=== PATIENT | male | born 1980 | race Caucasian/White ===

== ENCOUNTER 2021-03-02 16:01 | Emergency (ER) | payer MEDICARE, MEDICAID, SELFPAY ==
[2021-03-02 16:05] VITALS: BP 135/57; PULSE 78; RESP 16; TEMP 36.6; O2SAT 100; BMI 29.9
[2021-03-02 16:26] LABS: Basophils # 0.1 10^3/uL (0.0-0.1); Basophils % 0.6 %; Eosinophils # 0.2 10^3/uL (0.0-0.8); Eosinophils % 1.6 %; Hematocrit 43.5 % (42.0-52.0); Hemoglobin 14.7 g/dL (11.7-16.6); Lymphocytes % 21.1 %; Mean Corpuscular HGB Conc 33.8 g/dL (30.0-36.0); Mean Corpuscular Hemoglobin 31.1 pg (28.0-34.0); Mean Corpuscular Volume 92.2 fl (80-94); Mean Platelet Volume 12.3 fL (7.4-10.4); Monocytes # 0.6 10^3/uL (0.2-0.9); Monocytes % 6.5 %; Neutrophils # 6.55 10^3/uL (1.8-7.7); Neutrophils % 69.9 %; Nucleated Red Blood Cells % 0 %; Platelet Count 186 10^3/cmm (130-400); Red Blood Count 4.72 10^6/uL (4.1-5.3); Red Cell Distribution Width 12.6 % (12.1-15.1); White Blood Count 9.4 10^3/uL (4.0-10.0)
--- NOTE | 2021-03-02 16:31 | CTR_ITS ---
PROCEDURE INFORMATION: Exam: CT Head Without Contrast Exam date and time: 03/02/2021 4:31 PM Age: 40 years old Clinical indication: Altered mental status/memory loss; Additional info: PT refusing to speak, this appears to be more of a psych issue but doing head ct^to rule out a stroke. Patient is selective in things he^will say. TECHNIQUE: Imaging protocol: Computed tomography of the head without contrast. Radiation optimization: All CT scans at this facility use at least one of these dose optimization techniques: automated exposure control; mA and/or kV adjustment per patient size (includes targeted exams where dose is matched to clinical indication); or iterative reconstruction. COMPARISON: No relevant prior studies available. RADIATION DOSE METRICS: Total DLP (mGy-cm): 1739.51 FINDINGS: Brain: Normal. No hemorrhage. Unremarkable white matter. No mass effect. Cerebral ventricles: No ventriculomegaly. Paranasal sinuses: Visualized sinuses are unremarkable. No fluid levels. Mastoid air cells: Visualized mastoid air cells are well aerated. Bones/joints: Unremarkable. No acute fracture. Soft tissues: Unremarkable. CT/CT head wo con* [id number] IMPRESSION: No acute intracranial abnormality. Radiation Dose CTDIVOL = (mGy): DLP = 1739.51 (mGy-cm)
--- NOTE | 2021-03-02 16:33 | W.ED.PSYCH ---
Documented by User: TED Ayala 03/03/21 20:51 HPI - Psych General: Chief Complaint: Psychiatric Symptoms Stated Complaint: PSYCH EVAL Time Seen by Provider: 03/02/21 16:18 History of Present Illness: HPI Narrative: Patient is a 40-year-old male who comes to the ED via EMS for psych eval. Patient was at the [facility] just prior to arrival and staff said patient just stopped verbally responding to them and he was just making a humming sound. Here in the ED patient is a poor historian and will not answer questions. He just stares blankly and mumbles things softly when I ask him questions. He understands my questions and does respond verbally to some questions correctly. When I asked questions about patient's history or why he is here he would just mumble quietly. Patient shook his head no when I asked if he had any SI, HI, auditory/visual hallucinations, depression or anxiety. Associated symptoms: Deny auditory hallucinations, visual hallucinations, depression, homicidal ideation or suicidal ideation Review of Systems Const: Denies: fever(s), chills or fatigue Eyes: Denies: change in vision or eye discomfort ENMT: Denies: throat pain, odynophagia, nasal discharge or nasal congestion Card: Denies: chest pain, palpitations, edema, swelling of feet/ankles, dyspnea on exertion or orthopnea Resp: Denies: dyspnea, productive cough or non-productive cough GI: Denies: abdominal pain, nausea, vomiting, diarrhea, constipation or hematochezia : Denies: flank pain, difficulty urinating, dysuria or hematuria Musc: Denies: neck pain, back pain or extremity swelling Skin/Breast: Denies: rash or new lesions Neuro: Denies: headache(s), numbness in extremities or weakness in extremities Psych: Reports: other (Mumbling and refusing to respond verbally.); Denies: anxiety, depression, visual hallucinations, auditory hallucinations, suicidal ideation or homicidal ideation Physical Exam Const: COMMON NORMALS: patient oriented x3 and alert HENMT: COMMON NORMALS: normocephalic HEAD & SCALP: normocephalic MOUTH: Normal oral and palatal mucosa present THROAT: posterior oropharynx normal and uvula midline Neck/C-Spine: COMMON NORMALS: supple GENERAL: Yes normal visual inspection Resp: COMMON NORMALS: normal respiratory effort, No retractions, No use of accessory muscles and clear to auscultation bilaterally AUSCULTATION: clear to auscultation bilaterally Cardio: COMMON NORMALS: regular rate, regular rhythm, S1 normal heart sound present, S2 normal heart sound present, No gallops present (Cardio), No clicks present (Cardio), No murmurs present (Cardio) and Peripheral pulses 2+ throughout RATE: regular rate RHYTHM: regular rhythm HEART SOUNDS: S1 normal heart sound present and S2 normal heart sound present PERIPHERAL PULSES: Peripheral pulses 2+ throughout GI: COMMON NORMALS: Normal to inspection, nondistended, normoactive bowel sounds present, Soft to palpation, non-tender and no masses PALPATION: Yes Soft to palpation : COMMON NORMALS: Yes no CVA tenderness BLADDER/KIDNEY EXAM: Yes no CVA tenderness Back/Pelvis: COMMON NORMALS: no CVA tenderness Extremity: COMMON NORMALS: normal to inspection Neuro: COMMON NORMALS: patient oriented x3, CN's II-XII intact bilaterally, moves all extremities, no focal motor deficits and no sensory deficits noted SENSORIUM/ORIENTATION: Yes alert COORDINATION/BALANCE: [id number] test normal SPEECH: Other neuro speech findings (pt is mumbling some words and saying others clearly) SENSORY EXAM: Yes extremities (Sensation intact to soft touch bilaterally.) MOTOR EXAM: 5/5 motor strength present throughout and Pronator motor function not present COORDINATION: [id number] test normal Course Vital Signs: Vital signs: Vital Signs Temperature 97.8 F 03/02/21 16:05 Pulse Rate 78 03/02/21 16:05 Respiratory Rate 16 03/02/21 16:05 Blood Pressure 135/57 03/02/21 16:05 Pulse Oximetry 100 03/02/21 16:05 MDM - Psych Lab Data: Attestation: I reviewed the patient's lab results. Labs: Lab Results 03/02/21 03/02/21 03/02/21 16:15 16:15 17:03 WBC 9.4 10^3/uL 10^3/ uL (4.0-10.0) RBC 4.72 10^6/uL 10^6 /uL (4.1-5.3) Hgb 14.7 g/dL g/dL (11.7-16.6) Hct 43.5 % % (42.0-52.0) MCV 92.2 fl fl (80-94) MCH 31.1 pg pg (28.0-34.0) MCHC 33.8 g/dL g/dL (30.0-36.0) RDW 12.6 % % (12.1-15.1) Plt Count 186 10^3/cmm 10^3 /cmm (130-400) MPV 12.3 fL H fL (7.4-10.4) Neut % (Auto) 69.9 % % Lymph % (Auto) 21.1 % % [place] % (Auto) 6.5 % % Eos % (Auto) 1.6 % % Baso % (Auto) 0.6 % % Neut # (Auto) 6.55 10^3/uL 10^3 /uL (1.8-7.7) Lymph # (Auto) 2.0 10^3/uL 10^3/ uL (0.8-4.8) [place] # (Auto) 0.6 10^3/uL 10^3/ uL (0.2-0.9) Eos # (Auto) 0.2 10^3/uL 10^3/ uL (0.0-0.8) Baso # (Auto) 0.1 10^3/uL 10^3/ uL (0.0-0.1) Nucleated RBC % (a uto) 0 % % Nucleated RBCs # 0.0 /100WBC /100W BC Sodium 137 mmol/L mmol/L (136-145) Potassium 3.8 mmol/L mmol/L (3.5-5.1) Chloride 102 mmol/L mmol/L (98-107) Carbon Dioxide 26 mmol/L mmol/L (22-29) Anion Gap 12.8 (5-19) BUN 13 mg/dL mg/dL (6-20) Creatinine 0.8 mg/dL mg/dL (0.7-1.2) GFR Calculation 106.0 mL/min mL/m in (90-130) Glucose 98 mg/dL mg/dL (65-115) Calculated Osmolal ity 284 mOsm/kg L mOs m/kg (285-295) Calcium 9.0 mg/dL mg/dL (8.5-10.5) Total Bilirubin 0.3 mg/dL mg/dL (0.15-1.2) AST 15 U/L U/L (0-40) ALT 17 U/L U/L (0-41) Alkaline Phosphata se 63 IU/L IU/L (40-130) Total Protein 7.2 g/dL g/dL (6.6-8.7) Albumin 4.2 g/dL g/dL (3.5-5.2) Globulin 3.0 g/dL g/dL (1.3-4.6) Urine Color Straw (Yellow) Urine Appearance Clear (CLEAR) Urine pH 6 (5-7) Ur Specific Gravit y 1.005 (1.005-1.030) Urine Protein Neg (Negative) Urine Glucose (UA) Norm (Normal) Urine Ketones Negative (Negative) Urine Blood Neg (Negative) Urine Nitrate Negative (Negative) Urine Bilirubin Neg (Negative) Urine Urobilinogen Norm mg/dL mg/dL (Negative) Ur Leukocyte Madeline ase Negative (Negative) Salicylates 0.4 mg/dL L mg/dL (3-10) Urine Opiates Scre en Acetaminophen < 5.0 ug/mL L ug/ mL (10-30) Ur Barbiturates Sc reen Ur Phencyclidine S crn Ur Amphetamines Sc reen U Benzodiazepines Scrn Urine Cocaine Scre en U Marijuana (THC) Screen Ethyl Alcohol < 10 mg/dL mg/dL (0-10) 03/02/21 17:03 WBC RBC Hgb Hct MCV MCH MCHC RDW Plt Count MPV Neut % (Auto) Lymph % (Auto) [place] % (Auto) Eos % (Auto) Baso % (Auto) Neut # (Auto) Lymph # (Auto) [place] # (Auto) Eos # (Auto) Baso # (Auto) Nucleated RBC % (a uto) Nucleated RBCs # Sodium Potassium Chloride Carbon Dioxide Anion Gap BUN Creatinine GFR Calculation Glucose Calculated Osmolal ity Calcium Total Bilirubin AST ALT Alkaline Phosphata se Total Protein Albumin Globulin Urine Color Urine Appearance Urine pH Ur Specific Gravit y Urine Protein Urine Glucose (UA) Urine Ketones Urine Blood Urine Nitrate Urine Bilirubin Urine Urobilinogen Ur Leukocyte Madeline ase Salicylates Urine Opiates Scre en Negative ng/mL ng /mL (Negative) Acetaminophen Ur Barbiturates Sc reen Negative ng/mL ng /mL (Negative) Ur Phencyclidine S crn Negative ng/mL ng /mL (Negative) Ur Amphetamines Sc reen Negative ng/mL ng /mL (Negative) U Benzodiazepines Scrn Negative ng/mL ng /mL (Negative) Urine Cocaine Scre en Negative ng/mL ng /mL (Negative) U Marijuana (THC) Screen Positive ng/mL H ng/mL (Negative) Ethyl Alcohol Discharge Plan Discharge Patient Disposition: Home Clinical Impression: Adverse effect of drug Qualifiers: Encounter type: initial encounter Qualified Code(s): T50.905A - Adverse effect of unspecified drugs, medicaments and biological substances, initial encounter Condition: Stable Prescriptions: No Action Unable to Assess RF: 0 Discharge Orders: Discharge ED (Routine); Ordered 03/02/21 Ordered By: Griffin Cardenas Discharge Diet: Usual diet Discharge Activity: Increase activity as tolerated Patient Instructions: Opioid Safety Activity Restrictions/Additional Instructions: Most likely the medication you have been prescribed for your depression has caused an adverse effect. It is recommended you follow-up with your therapist or your primary care physician that is managing your medications to adjust the dosage. At this time continue with routine care. Return to the ER for worsening symptoms or new concerns. Sign Out Sign Out Data: Patient Sign Out occurred on 03/02/21 at 17:19. Patient's care was discussed, and care was transferred from to Griffin Cardenas. Coding Level of Care Code ED Explosives Operator for Chg Fwd Exam Comprehensive Documented by User: DONNA Quiroz 03/02/21 18:11 HPI - Psych General: Chief Complaint: Psychiatric Symptoms Stated Complaint: PSYCH EVAL Time Seen by Provider: 03/02/21 16:18 Physical Exam Psych: COMMON NORMALS: cooperative ATTITUDE: Yes calm and Yes evasive SPEECH: Yes incoherent MOOD & AFFECT: Yes euthymic mood Course ED course: 1804, discussed with Dr. Agrawal patient's condition and abnormalities of exams. Patient consistently denies suicidal or homicidal thoughts. Patient denies any hallucinations or other signs of psychosis. It is believed patient's probably had a adverse effect to one of his antidepressants. We do not have the list of this medication at this time. Patient would like to go home. Dr. Agrawal is agreeable to this plan of him going home and following up with his psychiatrist or provider that he manages his prescriptions for dosage adjustment. Laboratory values and head CT were all negative. Vital Signs: Vital signs: Vital Signs Temperature 97.8 F 03/02/21 16:05 Pulse Rate 78 03/02/21 16:05 Respiratory Rate 16 03/02/21 16:05 Blood Pressure 135/57 03/02/21 16:05 Pulse Oximetry 100 03/02/21 16:05 MDM - Psych MDM Narrative: Medical decision making narrative: Patient was brought in by EMS for concerns of change in verbalization while visiting the [facility]. Patient denied any homicidal or suicidal thought. No focal neural deficits were noted. Patient would at times verbalize yes or no but otherwise would just hmmm or mumble responses. Patient denied any hallucinations auditory or visual. Patient was cooperative throughout exam. Differential diagnosis includes but not limited to adverse drug effect, delirium, psychosis. No signs of psychosis was noted at this time. CT of the head indicated no stroke or other physical abnormality. Laboratory values were unremarkable. Drug screen only noted positive for marijuana. I reviewed this with Dr. Agrawal he believes it may be an tach that was brought on by some of his antidepressant medication. Patient was recommended to follow-up with primary care for further instruction. Return to the ER for new concerns. Lab Data: Labs: Lab Results 03/02/21 03/02/21 03/02/21 16:15 16:15 17:03 WBC 9.4 10^3/uL 10^3/ uL (4.0-10.0) RBC 4.72 10^6/uL 10^6 /uL (4.1-5.3) Hgb 14.7 g/dL g/dL (11.7-16.6) Hct 43.5 % % (42.0-52.0) MCV 92.2 fl fl (80-94) MCH 31.1 pg pg (28.0-34.0) MCHC 33.8 g/dL g/dL (30.0-36.0) RDW 12.6 % % (12.1-15.1) Plt Count 186 10^3/cmm 10^3 /cmm (130-400) MPV 12.3 fL H fL (7.4-10.4) Neut % (Auto) 69.9 % % Lymph % (Auto) 21.1 % % [place] % (Auto) 6.5 % % Eos % (Auto) 1.6 % % Baso % (Auto) 0.6 % % Neut # (Auto) 6.55 10^3/uL 10^3 /uL (1.8-7.7) Lymph # (Auto) 2.0 10^3/uL 10^3/ uL (0.8-4.8) [place] # (Auto) 0.6 10^3/uL 10^3/ uL (0.2-0.9) Eos # (Auto) 0.2 10^3/uL 10^3/ uL (0.0-0.8) Baso # (Auto) 0.1 10^3/uL 10^3/ uL (0.0-0.1) Nucleated RBC % (a uto) 0 % % Nucleated RBCs # 0.0 /100WBC /100W BC Sodium 137 mmol/L mmol/L (136-145) Potassium 3.8 mmol/L mmol/L (3.5-5.1) Chloride 102 mmol/L mmol/L (98-107) Carbon Dioxide 26 mmol/L mmol/L (22-29) Anion Gap 12.8 (5-19) BUN 13 mg/dL mg/dL (6-20) Creatinine 0.8 mg/dL mg/dL (0.7-1.2) GFR Calculation 106.0 mL/min mL/m in (90-130) Glucose 98 mg/dL mg/dL (65-115) Calculated Osmolal ity 284 mOsm/kg L mOs m/kg (285-295) Calcium 9.0 mg/dL mg/dL (8.5-10.5) Total Bilirubin 0.3 mg/dL mg/dL (0.15-1.2) AST 15 U/L U/L (0-40) ALT 17 U/L U/L (0-41) Alkaline Phosphata se 63 IU/L IU/L (40-130) Total Protein 7.2 g/dL g/dL (6.6-8.7) Albumin 4.2 g/dL g/dL (3.5-5.2) Globulin 3.0 g/dL g/dL (1.3-4.6) Urine Color Straw (Yellow) Urine Appearance Clear (CLEAR) Urine pH 6 (5-7) Ur Specific Gravit y 1.005 (1.005-1.030) Urine Protein Neg (Negative) Urine Glucose (UA) Norm (Normal) Urine Ketones Negative (Negative) Urine Blood Neg (Negative) Urine Nitrate Negative (Negative) Urine Bilirubin Neg (Negative) Urine Urobilinogen Norm mg/dL mg/dL (Negative) Ur Leukocyte Madeline ase Negative (Negative) Salicylates 0.4 mg/dL L mg/dL (3-10) Urine Opiates Scre en Acetaminophen < 5.0 ug/mL L ug/ mL (10-30) Ur Barbiturates Sc reen Ur Phencyclidine S crn Ur Amphetamines Sc reen U Benzodiazepines Scrn Urine Cocaine Scre en U Marijuana (THC) Screen Ethyl Alcohol < 10 mg/dL mg/dL (0-10) 03/02/21 17:03 WBC RBC Hgb Hct MCV MCH MCHC RDW Plt Count MPV Neut % (Auto) Lymph % (Auto) [place] % (Auto) Eos % (Auto) Baso % (Auto) Neut # (Auto) Lymph # (Auto) [place] # (Auto) Eos # (Auto) Baso # (Auto) Nucleated RBC % (a uto) Nucleated RBCs # Sodium Potassium Chloride Carbon Dioxide Anion Gap BUN Creatinine GFR Calculation Glucose Calculated Osmolal ity Calcium Total Bilirubin AST ALT Alkaline Phosphata se Total Protein Albumin Globulin Urine Color Urine Appearance Urine pH Ur Specific Gravit y Urine Protein Urine Glucose (UA) Urine Ketones Urine Blood Urine Nitrate Urine Bilirubin Urine Urobilinogen Ur Leukocyte Madeline ase Salicylates Urine Opiates Scre en Negative ng/mL ng /mL (Negative) Acetaminophen Ur Barbiturates Sc reen Negative ng/mL ng /mL (Negative) Ur Phencyclidine S crn Negative ng/mL ng /mL (Negative) Ur Amphetamines Sc reen Negative ng/mL ng /mL (Negative) U Benzodiazepines Scrn Negative ng/mL ng /mL (Negative) Urine Cocaine Scre en Negative ng/mL ng /mL (Negative) U Marijuana (THC) Screen Positive ng/mL H ng/mL (Negative) Ethyl Alcohol Discharge Plan Discharge Patient Disposition: Home Clinical Impression: Adverse effect of drug Qualifiers: Encounter type: initial encounter Qualified Code(s): T50.905A - Adverse effect of unspecified drugs, medicaments and biological substances, initial encounter Condition: Stable Prescriptions: No Action Unable to Assess RF: 0 Discharge Orders: Discharge ED (Routine); Ordered 03/02/21 Ordered By: Griffin Cardenas Discharge Diet: Usual diet Discharge Activity: Increase activity as tolerated Patient Instructions: Opioid Safety Activity Restrictions/Additional Instructions: Most likely the medication you have been prescribed for your depression has caused an adverse effect. It is recommended you follow-up with your therapist or your primary care physician that is managing your medications to adjust the dosage. At this time continue with routine care. Return to the ER for worsening symptoms or new concerns. Sign Out Sign Out Data: Patient Sign Out occurred on 03/02/21 at 17:19. Patient's care was discussed, and care was transferred from to Griffin Cardenas. Coding Level of Care Code ED Explosives Operator for Farzad Soria Exam Comprehensive
[2021-03-02 16:52] LABS: Alanine Aminotransferase 17 U/L (0-41); Albumin Level 4.2 g/dL (3.5-5.2); Alkaline Phosphatase 63 IU/L (40-130); Anion Gap 12.8 (5-19); Aspartate Amino Transferase 15 U/L (0-40); Blood Urea Nitrogen 13 mg/dL (6-20); Carbon Dioxide 26 mmol/L (22-29); Chloride 102 mmol/L (98-107); Glucose 98 mg/dL (65-115); Osmolality Calculated 284 mOsm/kg (285-295); Potassium 3.8 mmol/L (3.5-5.1); Salicylate 0.4 mg/dL (3-10); Sodium 137 mmol/L (136-145); Total Bilirubin 0.3 mg/dL (0.15-1.2); Total Protein 7.2 g/dL (6.6-8.7)
[2021-03-02 16:53] LABS: Acetaminophen < 5.0 ug/mL (10-30); Alcohol Level < 10 mg/dL (0-10)
[2021-03-02 17:15] LABS: Add Urine Microscopic? NO; Charge for UA Resulting for Rev
[2021-03-02 17:19] LABS: Bilirubin Urine Neg (Negative); Blood Urine Neg (Negative); Glucose Urine UA Norm (Normal); Ketones Urine Negative (Negative); Leukocyte Esterase Urine Negative (Negative); Nitrate Urine Negative (Negative); Protein Urine Neg (Negative); Specific Gravity, Urine 1.005 (1.005-1.030); Urine Appearance Clear (CLEAR); Urine Color Straw (Yellow); Urobilinogen Urine Norm (Negative); pH Urine 6 (5-7)
--- NOTE | 2021-03-02 17:20 | PC.PHAR ---
PT WILL ONLY HUM WHEN ASKED QUESTIONS-EXT MED HISTORY SHOWS TRAZODONE 50MG 1 TAB HS, TEMAZEPAM 15MG 1 TAB DAILY FILLED ON 03/01/21 30D/S-ALBENDAZOLE 200MG 2 TAB DAILY ONCE FOR 2 DAYS THEN REPEAT IN 2 WEEKS FILLED ON 02/11/21 14D/S-PHENTERMINE 37.5MG DAILY FILLED 02/05/21 30D/S-VITAMIN D3 5,000 UNITS DAILY FILLED 02/03/21 30D/S-LATUDA 40MG DAILY FILLED 02/03/21 30D/S-HYDROXYZINE PAMOATE 50MG 1 QID DIRECTED FILLED ON 01/16/21 30D/S-PRAZOSIN 1MG 1 CAP HS FILLED 01/14/21 30D/S-CLONAZEPAM 1MG 1 TAB BID DIRECTED FILLED ON 01/14/21 30D/S-BENZTROPINE 1MG 1 TAB BID DIRECTED FILLED ON 01/14/21 30D/S
[2021-03-02 17:29] LABS: Amphetamines Screen Urine Negative (Negative); Barbiturates Screen Urine Negative (Negative); Benzodiazepines Screen Urine Negative (Negative); Cocaine Screen Urine Negative (Negative); Opiate Screen Urine Negative (Negative); PCP Screen Urine Negative (Negative); THC Screen Urine Positive (Negative)
== END 2021-03-02 18:34 | disposition home or self-care (01) ==
PROVIDERS: Physician Assistant; Emergency Provider Nurse Practitioner Family
DX: T88.7XXA Unspecified adverse effect of drug or medicament, initial encounter (principal); T50.905A Adverse effect of unspecified drugs, medicaments and biological substances, initial encounter
CPT/HCPCS: 70450; 80053; 80306; 80307; 81003; 85025; 99283

== ENCOUNTER 2021-04-04 16:56 | Inpatient (IN) | payer MEDICARE, MEDICAID, SELFPAY ==
--- NOTE | 2021-04-04 16:57 | ED_ITS ---
HPI - Psych General: Chief Complaint: General Medical Stated Complaint: AUDITORY HALLUCINATIONS Time Seen by Provider: 04/04/21 16:57 History of Present Illness: HPI Narrative: Mr. Maxwell is a 40-year-old gentleman with psychiatric history who presents emergency department due to psychiatric concern. He endorses 1 day history of increased auditory hallucinations. He denies command hallucinations however the hallucinations do bother him. His exact history is somewhat unclear, his thought processes slowed and at times he appears to be responding to internal stimuli. He reports he has been on Risperdal. He reports missing a few doses but is unsure of how many. He otherwise denies injury or medical complaint. No other known specific exacerbating relieving factors. Review of Systems General: Reports: 10 or more systems reviewed and unremarkable except in HPI and below Physical Exam Narrative: EXAM NARRATIVE: GENERAL/CONSTITUTIONAL - well-appearing. No acute distress. Eyes -no scleral icterus, no conjunctival injection ENMT - Atraumatic external nose and ears. Moist mucous membranes NECK - supple. trachea midline CARDIOVASCULAR - regular rate and rhythm. RESPIRATORY -clear to auscultation bilaterally. ABDOMEN/GI - Nontender/Nondistended. MSK - Extremities without obvious deformity or tenderness to palpation SKIN - Warm, Dry NEURO - alert but unclear orientation. Moves all extremities equally. PSYCH -impaired cognition and memory. Course ED course: - Patient was seen and evaluated by me at bedside - Patient placed on cardiac monitors, IV access obtained - Initial evaluation notable for no acute distress, no traumatic injuries - Labs notable for no acute abnormality to explain the patient's symptoms. - After initial assessment and the patient being agreeable to be hospitalized he began to try and leave. I assessed the patient. The patient lacks capacity to make decisions regarding disposition. He cannot articulate any risks or benefits nor reasoning for desire to leave. He cannot express where he plans to go when he leaves or any follow-up plan. I attempted to explain the situation with the patient and he did not appear to have any understanding. 96-hour hold paperwork filled out due to patient's level of psychosis - Patient admitted to psychiatric unit after discussion with Dr. Cavazos. - Admitted without acute deterioration or acute event in the emergency department Vital Signs: Vital signs: Vital Signs Temperature 97.7 F 04/07/21 14:00 Pulse Rate 101 H 04/07/21 20:46 Respiratory Rate 17 04/07/21 20:46 Blood Pressure 156/114 04/07/21 20:46 Pulse Oximetry 96 04/07/21 20:46 MDM - Psych Medical Records: Attestation: I reviewed the patient's medical records. Lab Data: Attestation: I reviewed the patient's lab results. Labs: Lab Results 04/04/21 04/04/21 04/04/21 17:33 17:33 19:28 WBC 12.5 10^3/uL H 10 ^3/uL (4.0-10.0) RBC 4.93 10^6/uL 10^6 /uL (4.1-5.3) Hgb 15.2 g/dL g/dL (11.7-16.6) Hct 45.1 % % (42.0-52.0) MCV 91.5 fl fl (80-94) MCH 30.8 pg pg (28.0-34.0) MCHC 33.7 g/dL g/dL (30.0-36.0) RDW 12.7 % % (12.1-15.1) Plt Count 212 10^3/cmm 10^3 /cmm (130-400) MPV 11.4 fL H fL (7.4-10.4) Neut % (Auto) 74.4 % % Lymph % (Auto) 17.3 % % [place] % (Auto) 5.3 % % Eos % (Auto) 1.5 % % Baso % (Auto) 0.9 % % Neut # (Auto) 9.28 10^3/uL H 10 ^3/uL (1.8-7.7) Lymph # (Auto) 2.2 10^3/uL 10^3/ uL (0.8-4.8) Daniels # (Auto) 0.7 10^3/uL 10^3/ uL (0.2-0.9) Eos # (Auto) 0.2 10^3/uL 10^3/ uL (0.0-0.8) Baso # (Auto) 0.1 10^3/uL 10^3/ uL (0.0-0.1) Nucleated RBC % (a uto) 0 % % Nucleated RBCs # 0.0 /100WBC /100W BC Sodium 140 mmol/L mmol/L (136-145) Potassium 4.2 mmol/L mmol/L (3.5-5.1) Chloride 103 mmol/L mmol/L (98-107) Carbon Dioxide 28 mmol/L mmol/L (22-29) Anion Gap 13.2 (5-19) BUN 11 mg/dL mg/dL (6-20) Creatinine 0.8 mg/dL mg/dL (0.7-1.2) GFR Calculation 106.0 mL/min mL/m in (90-130) Glucose 92 mg/dL mg/dL (65-115) Calculated Osmolal ity 289 mOsm/kg mOsm/ kg (285-295) Calcium 9.0 mg/dL mg/dL (8.5-10.5) Total Bilirubin 0.4 mg/dL mg/dL (0.15-1.2) AST 8 U/L U/L (0-40) ALT 11 U/L U/L (0-41) Alkaline Phosphata se 79 IU/L IU/L (40-130) Total Protein 7.0 g/dL g/dL (6.6-8.7) Albumin 4.2 g/dL g/dL (3.5-5.2) Globulin 2.8 g/dL g/dL (1.3-4.6) TSH 0.93 uIU/mL uIU/m L (0.27-4.20) Salicylates < 0.3 mg/dL L mg/ dL (3-10) Urine Opiates Scre en Negative ng/mL ng /mL (Negative) Acetaminophen < 5.0 ug/mL L ug/ mL (10-30) Ur Barbiturates Sc reen Negative ng/mL ng /mL (Negative) Ur Phencyclidine S crn Negative ng/mL ng /mL (Negative) Ur Amphetamines Sc reen Positive ng/mL H ng/mL (Negative) U Benzodiazepines Scrn Negative ng/mL ng /mL (Negative) Urine Cocaine Scre en Negative ng/mL ng /mL (Negative) U Marijuana (THC) Screen Positive ng/mL H ng/mL (Negative) Ethyl Alcohol < 10 mg/dL mg/dL (0-10) EKG Data^: EKG 1: Attestation: I personally reviewed and interpreted this EKG as follows: EKG interpretation date: 04/04/21 EKG interpretation time: 17:48 Interpretation: Twelve-lead EKG shows a regular rhythm at a rate of 89. WA interval 148, QRS duration 98, QTc 409. Left axis deviation. Interpretation: Sinus rhythm Discharge Plan Discharge Patient Disposition: Admitted As Inpatient Admit Provider: Darrell Cavazos Clinical Impression: Acute psychosis Condition: Stable Coding Level of Care Code ED Spray Gun Repairer Helper for Farzad Soria
[2021-04-04 17:01] VITALS: BP 143/95; PULSE 90; RESP 18; TEMP 36.5; O2SAT 97; BMI 35.1
--- NOTE | 2021-04-04 17:08 | ECG_ITS ---
[facility] Test Date: 2021-04-04 Pat Name: Reuben Maxwell Department: Room: Gender: Male Cloud Architect: : [id number] Requested By: Zackery Gaitan Order Number: [id number] [place] MD: MAIKEL NICE Measurements Intervals [place] Rate: 89 P: 59 NH: 148 QRS: -13 QRSD: 98 T: 51 QT: 336 QTc: 409 Interpretive Statements SINUS RHYTHM VOLTAGE CRITERIA FOR LVH [MEETS CRITERIA IN ONE OF: R(aVL), S(V1), R(V5), R(V5/V6)+S(V1)] No previous ECG available for comparison Electronically Signed On 04-05-2021 0:10:19 CDT by MAIKEL NICE [email or web address]/[id number] f
[2021-04-04 17:49] LABS: Basophils # 0.1 10^3/uL (0.0-0.1); Basophils % 0.9 %; Eosinophils # 0.2 10^3/uL (0.0-0.8); Eosinophils % 1.5 %; Hematocrit 45.1 % (42.0-52.0); Hemoglobin 15.2 g/dL (11.7-16.6); Lymphocytes # 2.2 10^3/uL (0.8-4.8); Lymphocytes % 17.3 %; Mean Corpuscular HGB Conc 33.7 g/dL (30.0-36.0); Mean Corpuscular Hemoglobin 30.8 pg (28.0-34.0); Mean Corpuscular Volume 91.5 fl (80-94); Mean Platelet Volume 11.4 fL (7.4-10.4); Monocytes # 0.7 10^3/uL (0.2-0.9); Monocytes % 5.3 %; Neutrophils # 9.28 10^3/uL (1.8-7.7); Neutrophils % 74.4 %; Nucleated Red Blood Cells % 0 %; Platelet Count 212 10^3/cmm (130-400); Red Blood Count 4.93 10^6/uL (4.1-5.3); Red Cell Distribution Width 12.7 % (12.1-15.1); White Blood Count 12.5 10^3/uL (4.0-10.0)
[2021-04-04 18:24] LABS: Alanine Aminotransferase 11 U/L (0-41); Albumin Level 4.2 g/dL (3.5-5.2); Alkaline Phosphatase 79 IU/L (40-130); Anion Gap 13.2 (5-19); Aspartate Amino Transferase 8 U/L (0-40); Blood Urea Nitrogen 11 mg/dL (6-20); Carbon Dioxide 28 mmol/L (22-29); Chloride 103 mmol/L (98-107); Globulin 2.8 g/dL (1.3-4.6); Glucose 92 mg/dL (65-115); Osmolality Calculated 289 mOsm/kg (285-295); Potassium 4.2 mmol/L (3.5-5.1); Sodium 140 mmol/L (136-145); Thyroid Stimulating Hormone 0.93 uIU/mL (0.27-4.20); Total Bilirubin 0.4 mg/dL (0.15-1.2)
[2021-04-04 18:26] LABS: Acetaminophen < 5.0 ug/mL (10-30); Alcohol Level < 10 mg/dL (0-10); Salicylate < 0.3 mg/dL (3-10)
[2021-04-04 19:58] LABS: Amphetamines Screen Urine Positive (Negative); Barbiturates Screen Urine Negative (Negative); Benzodiazepines Screen Urine Negative (Negative); Cocaine Screen Urine Negative (Negative); Opiate Screen Urine Negative (Negative); PCP Screen Urine Negative (Negative); THC Screen Urine Positive (Negative)
[2021-04-04 21:37] VITALS: BP 141/94; PULSE 87; RESP 21; TEMP 36.7; O2SAT 98
[2021-04-05] MEDS: hyDROXYzine 25 mg Capsule 50 MG PO ×3 (04:13→15:57)
[2021-04-05 06:00] VITALS: BP 140/102; PULSE 97; RESP 22; TEMP 36.7; O2SAT 97
--- NOTE | 2021-04-05 06:01 | PC.NURSE ---
Patient has been up in ruggiero, pacing, tense, anxious. Received PRN Vistaril at 0413. Patient does appear less tense at this time but continues pacing. Does report that Vistaril was helpful.
[2021-04-05] MEDS: CLONazepam 1 mg Tablet PO ×2 (09:17→23:13)
[2021-04-05] MEDS: divalproex DR 500 mg Tablet PO ×2 (09:17→23:12)
[2021-04-05] MEDS: loratadine 10 mg Tablet PO (09:17)
[2021-04-05] MEDS: risperiDONE 1 mg Tablet PO ×2 (09:17→23:12)
--- NOTE | 2021-04-05 09:18 | PC.NURSE ---
PATIENT UP TO ATTEND MORNING GROUP, REMAINS VERY TENSE, DIFFICULT TO TRACK ANC CONCENTRATE ON CONVERSATION. REPORS HAVING SEVERE AUDITORY HALLUCINATIONS THIS MORNING. REMINDED HIM HE COULD HAVE VISTARIL IF NEEDED.
--- NOTE | 2021-04-05 10:21 | PC.NURSE ---
PRN VISTARIL 50 MG GIVEN PO PER PT C/O STATED ANXIETY
--- NOTE | 2021-04-05 10:52 | NPU.GN ---
[facility] Unit Group Topic: Triggers and Coping Skills General Mood of Group: Reuben did attend group and did participate in group today.
[2021-04-05] MEDS: nicotine 2 mg Gum BUCCAL ×2 (12:25→17:06)
--- NOTE | 2021-04-05 13:03 | P.NPUHP_ITS ---
Providers/Chief Complaint Admitting Physician: Darrell Cavazos MD Chief Complaint: AUDITORY HALLUCINATIONS HPI NPU History of Present Illness Reuben Maxwell is a 40 year old male who presented to the emergency department with report: Chief Complaint: General Medical Stated Complaint: AUDITORY HALLUCINATIONS Time Seen by Provider: 04/04/21 16:57 History of Present Illness: HPI Narrative: Mr. Maxwell is a 40-year-old gentleman with psychiatric history who presents emergency department due to psychiatric concern. He endorses 1 day history of increased auditory hallucinations. He denies command hallucinations however the hallucinations do bother him. His exact history is somewhat unclear, his thought processes slowed and at times he appears to be responding to internal stimuli. He reports fall w ith an MS and has been on Risperdal. He reports missing a few doses but is unsure of how many. He otherwise denies injury or medical complaint. No other known specific exacerbating relieving factors. He was admitted to the neuropsychiatric unit for definitive treatment of those issues. He presents today as a fairly poor historian with lack of clarity in many if not most of his answers. He reports that he is at the hospital to get on his medications because he stopped them but then reported that he has all his medications with him and he only been off of them for 2 or 3 days and he could not articulate why he would need to come to the hospital to get back on medications he has. When asked what medications he is on he said Klonopin and stuff. He reports that he has been hospitalized sometimes but could not estimate a number and could not without great difficulty suggest amount of time since his last hospitalization. He reports he has been at outpatient services before but could not give the name. He reports he smokes cigarettes about a pack a day, denies alcohol use reports marijuana occasionally and denies cocaine methamphetamine opiates or any other illicit drug use ever. He reports he never been to rehab or had a DUI. Problematic to that response is that he is pos itive for amphetamines and cannabis on his drug screen. He cannot articulate what symptoms he has had since he stopped his medication but did have frequent long pauses that were never filled with an answer looking like significant thought blocking. He cannot articulate why he was on a 96-hour hold other than he thinks he wanted to leave the hospital after coming in saying he wanted to be admitted. The 96-hour hold identifies how significant his thought disorder was reporting that he was unable to answer basic questions and they were fearful that he was unable to make informed consent lacking capacity due to his mental state. We agreed that we would review his pharmacy records and make sure he was on the appropriate medication and monitor him on a 96-hour hold and discharge home as soon possible. He denies any history of suicide attempts. Psychiatric history: As above. Substance abuse history: As above. Family history: He denies mental health issues on his father side endorses him on his mother side, denies addiction issues on either side of family or suicide attempt or com pletions on either side of family. Developmental history: He denied issues with his mother's with him or the or delivery, he reports he would walk and talk and met developmental milestones on time, reportedly well to school he did not need speech therapy, emotional support but did require very supportive education classes. Psychosocial history: He reports his parents were together when he was born but later on. He reports that he is the oldest of the 3 children his parents had with a younger brother and understood. Neither parent had any other children other jonel n those 3. He reports his childhood was good and he denied emotional physical or sexual abuse. He denies CYS involvement or any other reason he was put in placement. He denies any major traumas in his life. He reports that he went to the 11th grade in high school and that he did not get a GED or any other additional training. He endorses being a heterosexual with his longest relationship being 6 7 years. He has been 2 times and once. He reports he has 4 children but initially said he had none, he is never in the and endorses being a Zoroastrianism. 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 He re ports he lives in an apartment with his fievan?e. Legal history: Denied Medical history: Denied. Please see ED note for any additional details. Meds NPU Home Medications Medication Instructions Recorded Confirmed Last Taken Type clonazepam 1 mg PO BID 04/04/21 04/04/21 Unknown History divalproex 500 mg PO BID 04/04/21 04/04/21 Unknown History loratadine 10 mg PO DAILY 04/04/21 04/04/21 Unknown History lorazepam 0.5 mg PO BID PRN 04/04/21 04/04/21 Unknown History phentermine 37.5 mg PO DAILY 04/04/21 04/04/21 Unknown History risperidone 1 mg PO BID 04/04/21 04/04/21 Unknown History Allergies Allergy/AdvReac Type Severity Reaction Status Date / Time haloperidol [From Haldol] Allergy ALGY-Anaphy Verified 04/04/21 17:01 laxis ketorolac [From Toradol] Allergy ALGY-Anaphy Verified 04/04/21 17:01 laxis nalbuphine [From Nubain] Allergy ALGY-Anaphy Verified 04/04/21 17:01 laxis Mental Status Exam MSE Comments: This is an obese white male with adequate grooming and eye contact with hospital scrubs on no abnormal movements except for mild psychomotor retardation. Repeat exam in mild distress. Speech was limited and decreased rate and volume with frequent pauses. Mood described as pretty good affect subdued and odd. Thought process disorganized with frequent pauses and what appears to be thought blocking. Thought content: Patient denied suicidal or homicidal ideation, there are no delusions reported or noted, he denied any auditory visualizations. Attention and concentration appear limited/impaired, memory is unreliable, but none were formally tested. He is alert and oriented x person and place. Insight and judgment are impaired and impulse control is limited. Vitals/I&O/Wt Last Vital Signs Temp 98.0 F 04/05/21 06:00 Pulse 97 04/05/21 06:00 Resp 22 H 04/05/21 06:00 BP 140/102 04/05/21 06:00 Pulse Ox 97 04/05/21 06:00 Weight last 48 hrs Weight 114.305 kg Data NPU : 04/04/21 17:33 04/04/21 17:33 A&P Assessment and plan (1) Acute psychosis: Status: Acute (2) Methamphetamine abuse: Status: Acute (3) Cannabis abuse: Status: Acute Additional A&P Information This is a 40-year-old white male with some reported past history of psychosis who presented to the emergency department with thought disorder and placed on a 96-hour hold with UDS positive for amphetamines and cannabis. 1. Continue current medication. 2. Continue every 15 minute checks for safety. 3. Encourage individual, group and milieu therapies. 4. Encourage sober living treatment after discharge at the highest level of care to which he is willing to commit. 5. We will monitor him on the night 6-hour hold and attempt to get him back on his prescribed medication and get connected with appropriate services. Involuntary Hold Information 96 Hour Hold: 96 Hour Involuntary Admission: Yes 96 Hour Hold Ending Date: 04/09/21 96 Hour Hold Ending Time: 00:01 Attestations NPU Medical Necessity Statement*: Inpatient hospitalization is medically necessary and the clinically appropriate intervention at this time. We will monitor medications make changes as indicated. Will be in the hospital for over 2 midnights. Likely length of stay 3 to 5 days. Coding Level of Care Code Acute Hotel Or Motel Manager for Farzad Fwd Diagnoses Acute psychosis F23 Methamphetamine abuse F15.10 Cannabis abuse F12.10
[2021-04-05 14:00] VITALS: BP 124/74; PULSE 88; RESP 17; TEMP 36.3; O2SAT 97
[2021-04-05] MEDS: OLANZapine 5 mg ODT PO (15:57)
--- NOTE | 2021-04-05 15:57 | PC.NURSE ---
PRN VISTARIL & ZYPREXA ZYDIS VISTARIL 50 MG GIVEN PO WITH ZYPREXA ZYDIS 5 MG PO PER PT C/O STATED ANXIETY/PARANOIA/PSYCHOSIS. PT MOVED TO SOUTH SIDE, UPSET ABOUT BEING MOVED TO ACUTE SIDE, STATED I FEEL LIKE THIS IS GOING TO BE A CHALLENGE OVER HERE. PACING HALLWAY, WITHDRAWN. WILL CONT TO MONITOR
[2021-04-05 21:19] VITALS: BP 157/89; PULSE 79; RESP 17; TEMP 37.2; O2SAT 95
[2021-04-05] MEDS: trazodone 50 mg Tablet PO (23:12)
[2021-04-06] MEDS: nicotine 2 mg Gum BUCCAL ×2 (05:20→16:38)
--- NOTE | 2021-04-06 05:25 | PC.NURSE ---
Patient has been in bed resting with eyes closed most of shift. When awake for HS meds, was calm and cooperative. No signs of responding to internal stimuli. Less tense than previous night. Took all HS meds. Took PRN Trazodone to good effect. Also received Flu vaccine to left deltoid without issue. Patient remained in bed until 0520 when he got up for PRN Nicotine gum. Calm and cooperative at that time. Clear speech and good eye contact at that time. No complaints voiced.
[2021-04-06 05:52] VITALS: BP 96/67; PULSE 93; RESP 18; TEMP 36.6; O2SAT 97
[2021-04-06] MEDS: CLONazepam 1 mg Tablet PO ×2 (08:09→20:55)
[2021-04-06] MEDS: risperiDONE 1 mg Tablet PO ×2 (08:09→20:56)
[2021-04-06] MEDS: loratadine 10 mg Tablet PO (08:09)
[2021-04-06] MEDS: divalproex DR 500 mg Tablet PO ×2 (08:09→20:55)
[2021-04-06] MEDS: ibuprofen 600 mg Tablet PO (08:09)
[2021-04-06] MEDS: OLANZapine 5 mg ODT PO ×2 (10:40→17:01)
[2021-04-06] MEDS: acetaminophen 325 mg Tablet 650 MG PO (11:03)
[2021-04-06] MEDS: LORazepam 0.5 mg Tablet PO (11:03)
--- NOTE | 2021-04-06 11:42 | NPU.GN ---
[facility] Group Topic:Mental Health Crossword Puzzle/ Psych Education General Mood of Group: Reuben did attend group and participated.
[2021-04-06 14:00] VITALS: BP 104/65; PULSE 114; RESP 20; TEMP 36.2; O2SAT 96
--- NOTE | 2021-04-06 17:02 | PC.NURSE ---
PRN ZYPREXA ZYDIS 5 MG GIVEN PO PER PT REQUEST OF MEDICATIONS PT STATED HE IS FEELING ANXIOUS PRN ATIVAN ALREADY GIVEN PREVIOUSLY, PT STATES THAT VISTARIL HYPES HIM UP
[2021-04-06] MEDS: trazodone 50 mg Tablet PO (20:56)
--- NOTE | 2021-04-06 21:16 | P.NPUPN_ITS ---
Subjective NPU Subjective: Interval history: Patient presents today reporting that he is doing a little better. He was able to identify that his addiction is what has brought him to this point and that he needs to make better choices. He cannot articulate what changes he is going to make to prevent reoccurrence but endorses an openness to identifying his choices and this outcome. Mental Status Exam MSE Comments: This is an obese white male with adequate grooming and eye contact with hospital scrubs on no abnormal movements except for mild psychomotor retardation. More cooperative with exam in no acute distress. Speech was limited and decreased rate and volume with frequent pauses, but less so. Mood described as pretty good, affect subdued and odd. Thought process disorganized with frequent pauses and what appears to be thought blocking. Thought content: Patient denied suicidal or homicidal ideation, there are no delusions reported or noted, he denied any auditory visualizations. Attention and concentration appear limited/impaired, memory is unreliable, but none were formally tested. He is alert and oriented x person and place. Insight and judgment are impaired and impulse control is limited. Vitals/I&O/Wt Last Vital Signs Temp 97.1 F L 04/06/21 14:00 Pulse 114 H 04/06/21 14:00 Resp 20 H 04/06/21 14:00 BP 104/65 04/06/21 14:00 Pulse Ox 96 04/06/21 14:00 Data NPU : 04/04/21 17:33 04/04/21 17:33 A&P Additional A&P Information (1) Acute psychosis: (2) Methamphetamine abuse: (3) Cannabis abuse: Additional A&P Information This is a 40-year-old white male with some reported past history of psychosis wh o presented to the emergency department with thought disorder and placed on a 96-hour hold with UDS positive for amphetamines and cannabis. 1. Continue current medication. 2. Continue every 15 minute checks for safety. 3. Encourage individual, group and milieu therapies. 4. Encourage sober living treatment after discharge at the highest level of care to which he is willing to commit. 5. We will monitor him on the night 6-hour hold and attempt to get him back on his prescribed medication and get connected with appropriate services. Involuntary Hold Information 96 Hour Hold: 96 Hour Involuntary Admission: Yes 96 Hour Hold Ending Date: 04/09/21 96 Hour Hold Ending Time: 00:01 Attestations NPU Medical Necessity Statement*: Inpatient hospitalization is medically necessary and the clinically appropriate intervention at this time. We will monitor medications make changes as indicated. Likely length of stay 2-4 days. Coding Level of Care Code Acute Patternmaker Plastics for Farzad Soria
[2021-04-06 21:28] VITALS: BP 130/76; PULSE 113; RESP 15; TEMP 36.9; O2SAT 98
--- NOTE | 2021-04-07 02:49 | PC.NURSE ---
Patient calm and cooperative at start of shift. Quiet but appropriate when approached. Did take PRN Trazadone to good effect. Patient has been resting in bed with eyes closed throughout night. No c/o, no signs of distress.
[2021-04-07 06:00] VITALS: BP 109/66; PULSE 67; RESP 17; TEMP 37.2; O2SAT 96
[2021-04-07] MEDS: acetaminophen 325 mg Tablet 650 MG PO ×3 (07:59→20:32)
[2021-04-07] MEDS: divalproex DR 500 mg Tablet PO ×2 (08:00→20:32)
[2021-04-07] MEDS: CLONazepam 1 mg Tablet PO ×2 (08:00→20:32)
[2021-04-07] MEDS: loratadine 10 mg Tablet PO (08:00)
[2021-04-07] MEDS: risperiDONE 1 mg Tablet PO ×2 (08:00→20:33)
[2021-04-07] MEDS: nicotine 21 mg Patch 1 PATCH TRANSDERMA (10:25)
--- NOTE | 2021-04-07 11:36 | NPU.GN ---
[facility] Group Topic: Meditation Psych Education General Mood of Group: Reuben did not attend group he wanted to sleep.
[2021-04-07 14:00] VITALS: BP 134/74; PULSE 67; RESP 18; TEMP 36.5; O2SAT 95
--- NOTE | 2021-04-07 14:44 | P.NPUPN_ITS ---
Subjective NPU Subjective: Interval history: Patient presents today still somewhat confused but being more capable of identifying the role of addiction in his presentation. He still has significant inappropriate laughter when serious issues are being discussed. But otherwise he is getting calmer and appearing less agitated/angry. Mental Status Exam MSE Comments: This is an obese white male with adequate grooming and eye contact with hospital scrubs on no abnormal movements except for mild psycho motor retardation. More cooperative with exam in no acute distress. Speech was limited and decreased rate and volume with less frequent pauses. Mood described as pretty good, affect odd. Thought process disorganized with frequent pauses and what appears to be thought blocking. Thought content: Patient denied suicidal or homicidal ideation, there are no delusions reported or noted, he denied any auditory visualizations. Attention and concentration appear limited/impaired, memory is unreliable, but none were formally tested. He is alert and oriented x person and place. Insight and judgment are impaired and impulse control is limited. Vitals/I&O/Wt Last Vital Signs Temp 97.7 F 04/07/21 14:00 Pulse 101 H 04/07/21 20:46 Resp 17 04/07/21 20:46 BP 156/114 04/07/21 20:46 Pulse Ox 96 04/07/21 20:46 Data NPU : 04/04/21 17:33 04/04/21 17:33 A&P Additional A&P Information (1) Acute psychosis: (2) Methamphetamine abuse: (3) Cannabis abuse: Additional A&P Information This is a 40-year-old white male with some reported past history of psychosis who presented to the emergency department with thought disorder and placed on a 96-hour hold with UDS positive for amphetamines and cannabis. 1. Continue current medication. 2. Continue every 15 minute checks for safety. 3. Encourage individual, group and milieu therapies. 4. Encourage sober living treatment after discharge at the highest level of care to which he is willing to commit. 5. We will monitor him on the 96-hour hold and attempt to get him back on his p rescribed medication and get connected with appropriate services. May have to consider a 21-day hold. Involuntary Hold Information 96 Hour Hold: 96 Hour Involuntary Admission: Yes 96 Hour Hold Ending Date: 04/09/21 96 Hour Hold Ending Time: 00:01 Attestations NPU Medical Necessity Statement*: Inpatient hospitalization is medically necessary and the clinically appropriate intervention at this time. We will monitor medications make changes as indicated. Likely length of stay 1-3 days. Coding Level of Care Code Acute Artificial Inseminator for Farzad Soria
[2021-04-07] MEDS: trazodone 50 mg Tablet PO (20:32)
[2021-04-07] MEDS: nicotine 2 mg Gum BUCCAL (20:32)
[2021-04-07 20:46] VITALS: BP 156/114; PULSE 101; RESP 17; O2SAT 96
--- NOTE | 2021-04-07 23:51 | PC.NURSE ---
Administered trazodone 50mg PO for sleep per patient request. Medication effective, patient resting with eyes closed in bed with equal, nonlabored respirations. Patient also requested nicotine gum.
[2021-04-08] MEDS: acetaminophen 325 mg Tablet 650 MG PO (04:11)
--- NOTE | 2021-04-08 04:29 | PC.NURSE ---
Upon assessment patient sitting in his room. He is alert/oriented x3. Patient has poor eye contact and fair hygeine. He rates depression 10, denies any anxiety, denies SI/HI, a/v hallucinations. He does c/o chronic pain to right foot where he has had some toes removed. Patient medicated with Tylenol. He does not socialize with peers and at times will lay on the floor on the other side of his bed by the window. He stated that he just likes to lay on the floor sometimes. Will continue to monitor and follow plan of care. q 15 min safety checks per protocol.
[2021-04-08] MEDS: nicotine 2 mg Gum BUCCAL ×5 (05:17→20:01)
[2021-04-08 06:00] VITALS: BP 130/86; PULSE 79; RESP 18; O2SAT 96
[2021-04-08] MEDS: CLONazepam 1 mg Tablet PO ×2 (09:11→20:01)
[2021-04-08] MEDS: divalproex DR 500 mg Tablet PO ×2 (09:12→20:01)
[2021-04-08] MEDS: risperiDONE 1 mg Tablet PO ×2 (09:12→20:01)
[2021-04-08] MEDS: loratadine 10 mg Tablet PO (09:12)
--- NOTE | 2021-04-08 12:03 | NPU.GN ---
[facility] Group Topic:Meditation/ Depression Bingo General Mood of Group: Reuben did attend group today and did well. He has episodes of hallucinations and speaking off topic. But he has been more focused than this brief writer has previously observed with him. Reuben did participate at times.
[2021-04-08] MEDS: ibuprofen 600 mg Tablet PO (12:59)
[2021-04-08] MEDS: OLANZapine 5 mg ODT PO (13:08)
[2021-04-08 14:00] VITALS: BP 142/80; PULSE 86; RESP 16; TEMP 36.6; O2SAT 98
--- NOTE | 2021-04-08 17:01 | P.NPUPN_ITS ---
Subjective NPU Subjective: Interval history: Patient presents today showing mild improvement but continuing to be quite odd making strange comments. We discussed the circumstances that brought him here and eventually he started a conversation about matthew. That came a point where he had some insight into the likelihood that what he was saying was problematic and he just tailed off the conversation and started laughing inappropriately. We discussed the risk benefits and alternatives of increasing his Risperdal and he appeared to understand and agreed to proceed as is documented in this note. We discussed the fact that a 21-day hold was filed because we feel he needs some additional days before he would be safe for discharge. Mental Status Exam MSE Comments: This is an obese white male with adequate grooming and eye contact with hospital scrubs on no abnormal movements except for mild p sychomotor retardation. More cooperative with exam in no acute distress. Speech was limited and decreased rate and volume with less frequent pauses, but still poor articulation. Mood described as okay, affect odd. Thought process disorganized with less frequent pauses. Thought content: Patient denied suicidal or homicidal ideation, there are no delusions reported, but some odd thoughts and beliefs are still expressed, he denied any auditory visualizations. Attention and concentration appear limited/impaired, memory is unreliable, but none were formally tested. He is alert and oriented x person and place. Insight and judgment are impaired and impulse control is limited. Vitals/I&O/Wt Last Vital Signs Temp 98 F 04/08/21 14:00 Pulse 86 04/08/21 14:00 Resp 18 04/08/21 22:00 BP 142/80 04/08/21 14:00 Pulse Ox 98 04/08/21 14:00 Data NPU : 04/04/21 17:33 04/04/21 17:33 A&P Additional A&P Information (1) Acute psychosis: (2) Methamphetamine abuse: (3) Cannabis abuse: Additional A&P Information This is a 40-year-old white male with some reported past history of psychosis who presented to the emergency department with thought disorder and placed on a 96-hour hold with UDS positive for amphetamines and cannabis. 1. Continue current medication. Will increase Risperdal to 2 mg p.o. twice daily 2. Continue every 15 minute checks for safety. 3. Encourage individual, group and milieu therapies. 4. Encourage sober living treatment after discharge at the highest level of care to which he is willing to commit. 5. We will monitor him on the 96-hour hold and attempt to get him back on his prescribed medication and get connected with appropriate services. 21-day hold paperwork filed. Involuntary Hold Information 96 Hour Hold: 96 Hour Involuntary Admission: Yes 96 Hour Hold Ending Date: 04/09/21 96 Hour Hold Ending Time: 00:01 Attestations NPU Medical Necessity Statement*: Inpatient hospitalization is medically necessary and the clinically appropriate intervention at this time. We will monitor medications make changes as indicated. Likely length of stay 4-6 days. Coding Level of Care Code Acute Clay Structure Builder And Servicer for Farzad Soria
[2021-04-08] MEDS: trazodone 50 mg Tablet PO (20:01)
[2021-04-08 22:00] VITALS: RESP 18
[2021-04-09 06:00] VITALS: BP 115/66; PULSE 78; RESP 16; TEMP 36.6; O2SAT 97
[2021-04-09] MEDS: loratadine 10 mg Tablet PO (08:19)
[2021-04-09] MEDS: risperiDONE 1 mg Tablet 2 MG PO ×2 (08:19→20:37)
[2021-04-09] MEDS: CLONazepam 1 mg Tablet PO ×2 (08:19→20:36)
[2021-04-09] MEDS: divalproex DR 500 mg Tablet PO ×2 (08:19→20:36)
[2021-04-09] MEDS: nicotine 2 mg Gum BUCCAL (10:19)
[2021-04-09] MEDS: nicotine 21 mg Patch 1 PATCH TRANSDERMA (13:13)
--- NOTE | 2021-04-09 13:49 | NPU.GN ---
[facility] Group Topic:Dice Breaker Psych Education General Mood of Group: Reuben did attend and tried his best to participate in group. This real estate underwriter noticed that Reuben had periods of time of Hallucinations and was confused or periods of blankly starring off. This real estate underwriter found that if you repeat the topic and what we are doing a few times to him he will come to and properly engage with group activity. Reuben still talks with himself but has been pleasant as far a demeanor with this real estate underwriter and others in group. Reuben is trying.
[2021-04-09 14:00] VITALS: BP 123/88; PULSE 114; RESP 18; TEMP 36.7; O2SAT 94
--- NOTE | 2021-04-09 15:21 | W.PM.NPUPNS ---
Subjective NPU Subjective: Interval history: Patient presents today reporting that he feels he is doing well enough to be discharged. He gave the number of the SO who he reports feels he is ready to leave. We discussed connecting with that person to assist with making the discharge decision. He denied any interest in using it and reports that he is eating and sleeping fine. Mental Status Exam MSE Comments: This is an obese white male with adequate grooming and eye contact with hospital scrubs on no abnormal movements except for mild psychomotor retardation. More cooperative with exam in no acute distress. Speech was limited and decreased rate and volume with less frequent pauses, but still poor articulation. Mood described as okay, affect odd. Thought process improved organization with less frequent pauses. Thought content: Patient denied suicidal or homicidal ideation, there are no delusions reported, but some odd thoughts and beliefs are still expressed, he denied any auditory or visual hallucinations. Attention and concentration appear limited , memory is unreliable, but none were formally tested. He is alert and oriented x 3. Insight and judgment are impaired and impulse control is limited. Vitals/I&O/Wt Last Vital Signs Temp 98.1 F 04/09/21 14:00 Pulse 114 H 04/09/21 14:00 Resp 18 04/09/21 14:00 BP 123/88 04/09/21 14:00 Pulse Ox 94 04/09/21 14:00 Data NPU : 04/04/21 17:33 04/04/21 17:33 A&P Additional A&P Information (1) Acute psychosis: (2) Methamphetamine abuse: (3) Cannabis abuse: Additional A&P Information This is a 40-year-old white male with some reported past history of psychosis who presented to the emergency department with thought disorder and placed on a 96-hour hold with UDS positive for amphetamines and cannabis. 1. Continue current medication. Increased Risperdal to 2 mg p.o. twice daily 04/08/21. 2. Continue every 15 minute checks for safety. 3. Encourage individual, group and milieu therapies. 4. Encourage sober living treatment after discharge at the highest level of care to which he is willing to commit. 5. We will monitor him on the 96-hour hold and attempt to get him back on his prescribed medication and get connected with appropriate services. 21-day hold paperwork filed. Involuntary Hold Information 96 Hour Hold: 96 Hour Involuntary Admission: Yes 96 Hour Hold Ending Date: 04/09/21 96 Hour Hold Ending Time: 00:01 Attestations NPU Medical Necessity Statement*: Inpatient hospitalization is medically necessary and the clinically appropriate intervention at this time. We will monitor medications make changes as indicated. Likely length of stay 3-5 days. Coding Level of Care Code Acute Tutorial Laboratory Supervisor for Farzad Soria
--- NOTE | 2021-04-09 16:13 | PC.NURSE ---
bizarre behaviors Pt is spitting in his hands and smearing it on the glass windows of the Nurses station. Pt is also spitting and smearing it on the jerez, even after being asked to please stop, by staff and other pt's on the unit. Pt was also observed having visual hallucinations, but denied all. Will continue to monitor.
[2021-04-09] MEDS: OLANZapine 5 mg ODT PO (16:18)
[2021-04-09] MEDS: diphenhydrAMINE 50 mg/mL SDV 1mL IM (18:57)
[2021-04-09] MEDS: haloperidol 5 mg Tablet PO (19:00)
--- NOTE | 2021-04-09 19:01 | PC.NURSE ---
prn Offered Haldol to pt for severe anxiety and auditory hallucinations. Administered 5mg Haldol to pt that stated his adverse reaction was minor. Consulted with Dr. Cavazos about giving 50mg of Benadryl IM to pt for prophylactic secondary to possible adverse reaction. Will continue to monitor pt.
[2021-04-09 22:00] VITALS: BP 106/63; PULSE 72; RESP 17; TEMP 36.5; O2SAT 99
--- NOTE | 2021-04-10 00:22 | PC.NURSE ---
Upon assessment patient standing in hallway. Patient alert/calm, fair eye contact. Patient denied any depression, anxiety, SI/HI, hallucinations. Patient was very relaxed and had no complaints. He states he did go to group today. Patient has been minimally social with peers. [facility] and he asked her to come and pick him up. Patient has stated that he thinks he get's to leave [facility]. Patient doesn't appear to comprehend 21 day hold. Will attempt to educate patient regarding his status. Q 15 min safety checks per protocol.
[2021-04-10 06:00] VITALS: BP 116/70; PULSE 80; RESP 16; TEMP 36.5; O2SAT 97
[2021-04-10] MEDS: risperiDONE 1 mg Tablet 2 MG PO (08:21)
[2021-04-10] MEDS: divalproex DR 500 mg Tablet PO (08:21)
[2021-04-10] MEDS: loratadine 10 mg Tablet PO (08:21)
[2021-04-10] MEDS: nicotine 21 mg Patch 1 PATCH TRANSDERMA (08:22)
[2021-04-10] MEDS: OLANZapine 5 mg ODT PO ×2 (12:40→15:41)
[2021-04-10 14:00] VITALS: BP 116/70; PULSE 80; RESP 16; TEMP 36.5; O2SAT 97
[2021-04-10] MEDS: acetaminophen 325 mg Tablet 650 MG PO (15:31)
[2021-04-10] MEDS: nicotine 2 mg Gum BUCCAL (15:45)
--- NOTE | 2021-04-10 16:48 | W.PM.NPUDCS ---
Diagnoses at Discharge Discharge Diagnosis (1) Acute psychosis: Status: Acute (2) Methamphetamine abuse: Status: Acute (3) Cannabis abuse: Status: Acute Reason for Visit Reason for Visit: AUDITORY HALLUCINATIONS Brief History: History of Present Illness Reuben Maxwell is a 40 year old male who presented to the emergency department with report: Chief Complaint: General Medical Stated Complaint: AUDITORY HALLUCINATIONS Time Seen by Provider: 04/04/21 16:57 History of Present Illness: HPI Narrative: Mr. Maxwell is a 40-year-old gentleman with psychiatric history who presents emergency department due to psychiatric concern. He endorses 1 day history of increased auditory hallucinations. He denies command hallucinations however the hallucinations do bother him. His exact history is somewhat unclear, his thought processes slowed and at times he appears to be responding to internal stimuli. He reports fall with an MS and has been on Risperdal. He reports missing a few doses but is unsure of how many. He otherwise denies injury or medical complaint. No other known specific exacerbating relieving factors. He was admitted to the neuropsychiatric unit for definitive treatment of those issues. He presents today as a fairly poor historian with lack of clarity in many if not most of his answers. He reports that he is at the hospital to get on his medications because he stopped them but then reported that he has all his medications with him and he only been off of them for 2 or 3 days and he could not articulate why he would need to come to the hospital to get back on medications he has. When asked what medications he is on he said Klonopin and stuff. He reports that he has been hospitalized sometimes but could not estimate a number and could not without great difficulty suggest amount of time since his last hospitalization. He reports he has been at outpatient services before but could not give the name. He reports he smokes cigarettes about a pack a day, denies alcohol use reports marijuana occasionally and denies cocaine methamphetamine opiates or any other illicit drug use ever. He reports he never been to rehab or had a DUI. Problematic to that response is that he is positive for amphetamines and cannabis on his drug screen. He cannot articulate what symptoms he has had since he stopped his medication but did have frequent long pauses that were never filled with an answer looking like significant thought blocking. He cannot articulate why he was on a 96-hour hold other than he thinks he wanted to leave the hospital after coming in saying he wanted to be admitted. The 96-hour hold identifies how significant his thought disorder was reporting that he was unable to answer basic questions and they were fearful that he was unable to make informed consent lacking capacity due to his mental state. We agreed that we would review his pharmacy records and make sure he was on the appropriate medication and monitor him on a 96-hour hold and discharge home as soon possible. He denies any history of suicide attempts. Psychiatric history: As above. Substance abuse history: As above. Family history: He denies mental health issues on his father side endorses him on his mother side, denies addiction issues on either side of family or suicide attempt or completions on either side of family. Developmental history: He denied issues with his mother's with him or the or delivery, he reports he would walk and talk and met developmental milestones on time, reportedly well to school he did not need speech therapy, emotional support but did require very supportive education classes. Psychosocial history: He reports his parents were together when he was born but later on. He reports that he is the oldest of the 3 children his parents had with a younger brother and understood. Neither parent had any other children other than those 3. He reports his childhood was good and he denied emotional physical or sexual abuse. He denies CYS involvement or any other reason he was put in placement. He denies any major traumas in his life. He reports that he went to the 11th grade in high school and that he did not get a GED or any other additional training. He endorses being a heterosexual with his longest relationship being 6 7 years. He has been 2 times and once. He reports he has 4 children but initially said he had none, he is never in the and endorses being a Qu[employer]. 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 He reports he lives in an apartment with his fievan?e. Legal history: Denied Medical history: Denied. Please see ED note for any additional details. Hospital Course Hospital Course He slowly acclimated to the individual, group therapy provided. His home medications were continued and his Risperdal was increased to 3 mg p.o. twice daily with a positive response. He was able to contract for safety outside the hospital prior to discharge. During the hospitalization, patient had routine laboratory studies which were within normal limits except for few outliers. Additionally there was a general medical evaluation which was also within normal limits and revealed no new acute processes. Discharge Summary: At the time of discharge, lethality was denied and psychosis was resolving. Mood and anxiety were well managed. Patient endorsed a plan to avoid all drugs of abuse and follow-up with the aftercare recommendations of the treatment team. Patient was evaluated and deemed to be absent credible lethality, and had achieved the maximum benefit from an inpatient hospitalization, so was discharged. Involuntary Hold Information 96 Hour Hold: 96 Hour Involuntary Admission: Yes 96 Hour Hold Ending Date: 04/09/21 96 Hour Hold Ending Time: 00:01 Mental Status Exam MSE Comments: This is an obese white male with adequate grooming and eye contact with hospital scrubs on no abnormal movements except for mild psychomotor retardation. More cooperative with exam in no acute distress. Speech was limited and decreased rate and volume with less frequent pauses, but still poor articulation. Mood described as okay, affect odd. Thought process improved organization with less frequent pauses. Thought content: Patient denied suicidal or homicidal ideation, there are no delusions reported, but some odd thoughts and beliefs are still expressed, he denied any auditory or visual hallucinations. Attention and concentration appear limited , memory is unreliable, but none were formally tested. He is alert and oriented x 3. Insight and judgment are improving and impulse control is limited. Discharge Data Vitals: Last Vital Signs Temp 97.7 F 04/10/21 14:00 Pulse 80 04/10/21 14:00 Resp 16 04/10/21 14:00 BP 116/70 04/10/21 14:00 Pulse Ox 97 04/10/21 14:00 Discharge Plan Discharge Patient Disposition: Home Condition: Stable Prescriptions: New risperidone 1 mg Tablet 2 mg PO 0900,2100 30 Days Qty: 120 RF: 1 Continued divalproex 500 mg tablet,delayed release (DR/EC) 500 mg PO BID 30 Days Qty: 60 RF: 1 loratadine 10 mg tablet 10 mg PO DAILY 30 Days Qty: 30 RF: 1 Discontinued clonazepam 1 mg tablet 1 mg PO BID RF: 0 lorazepam 0.5 mg tablet 0.5 mg PO BID PRN (Reason: Anxiety) RF: 0 risperidone 1 mg tablet 1 mg PO BID RF: 0 phentermine 37.5 mg tablet 37.5 mg PO DAILY RF: 0 Discharge Orders: Discharge Order (Routine); Ordered 04/10/21 Ordered By: Darrell Cavazos Referrals: [facility] [place] [facility] [Outside] (Walk-in Tuesdays or 7:30am to 3pm.) Discharge Diet: Regular Discharge Activity: Resume usual activity Patient Instructions: Risperidone (By mouth), Psychotic Disorder (DC), Opioid Safety Discharge Attestations NPU Time Spent in Discharge Care*: less than 30 min Specific Discharge Activities: Specific discharge activities: educating patient, discussing with child support case officer/social workers/dc planners, documenting/other paperwork and evaluating patient/reviewing data Coding Level of Care Code Acute Chg FW DC note Diagnoses Acute psychosis F23 Methamphetamine abuse F15.10 Cannabis abuse F12.10
[2021-04-10 17:50] VITALS: BP 116/70; PULSE 80; RESP 16; TEMP 36.5; O2SAT 97
== END 2021-04-10 18:13 | disposition home or self-care (01) | DRG 885 ==
LOC: ER 19:06 → NP 20:54
PROVIDERS: Admitting Provider Psychiatry & Neurology Psychiatry; Emergency Provider Emergency Medicine; Visit Provider Psychiatry & Neurology Psychiatry
DX: F23 Brief psychotic disorder (principal); F15.151 Other stimulant abuse with stimulant-induced psychotic disorder with hallucinations; F12.151 Cannabis abuse with psychotic disorder with hallucinations; T50.906A Underdosing of unspecified drugs, medicaments and biological substances, initial encounter; Z91.128 Patient's intentional underdosing of medication regimen for other reason
CPT/HCPCS: 36415; 80053; 80306; 80307; 84443; 85025; 90471; 90686; 90935; 93005; 96372; 97150; 97165; 99285; J1200